=== PATIENT | female | born 1970 | race Caucasian/White ===

== ENCOUNTER → 2017-04-06 | Outpatient (CLI) | payer BC ==
[~2017-04-06] MED LIST: ANAPROX DS550 MG PO; BACTRIM DS 8001 TA1 PO; CEPHALEXIN500 M1 PO; CIPROFLOXACIN500 MG PO; DAYPRO600 M1 PO; HYDROCODONE BIT1 T11 PO; KEFLEX500 MG PO; MOTRIN800 MG PO; NAPROSYN500 MG PO; NKHM; TESSALON PERLE200 MG PO; ULTRAM50 MG PO; VICODIN ES 7501 TAB PO; ZITHROMAX Z PA250 MG PO; ZOFRAN ODT4 MG SL; ZOFRAN4 MG PO
== END | disposition home or self-care (01) ==
LOC: US 09:39
DX: K76.0 Fatty (change of) liver, not elsewhere classified (principal); R16.0 Hepatomegaly, not elsewhere classified; E66.01 Morbid (severe) obesity due to excess calories; G47.9 Sleep disorder, unspecified; E11.9 Type 2 diabetes mellitus without complications

== ENCOUNTER 2017-04-12 14:53 | Emergency (ER) | payer BC ==
[~2017-04-12] VITALS: Ht 144.7 cm; Wt 93.0 kg
[2017-04-12 14:58] VITALS: BP 146/98
[2017-04-12 15:38] LABS: BASO # 0.1 10*3/uL (0.0-0.1); BASO % 0.8 % (0.0-1.0); EOS # 0.1 10*3/uL (0.0-0.4); EOS % 1.4 % (1.0-4.0); HEMATOCRIT 38.2 % (37.0-47.0); HEMOGLOBIN 13.4 g/dl (12.0-16.0); LYMPH # 1.9 10*3/uL (1.3-4.4); LYMPH % 26.7 % (27.0-41.0); MEAN CORPUSCULAR HGB 30.9 pg (27.0-31.0); MEAN CORPUSCULAR HGB CONC 35.1 g/dl (33.0-37.0); MONO # 0.5 10*3/uL (0.1-1.0); MONO % 6.3 % (3.0-9.0); NEUT # 4.6 10*3/uL (2.3-7.9); NEUT % 64.4 % (47.0-73.0); PLATELET COUNT AUTOMATED 245 10*3/uL (130-400); RED BLOOD COUNT 4.34 10*6/uL (4.10-5.10); RED CELL DISTRI WIDTH 11.9 % (0-14.5); WHITE BLOOD COUNT 7.1 10*3/uL (4.8-10.8)
[2017-04-12 15:52] LABS: ALBUMIN 3.9 gm/dl (3.1-4.5); ALKALINE PHOSPHATASE 68 U/L (45-117); BUN 18 mg/dl (7-24); CHLORIDE 109 mmol/L (98-107); CREATININE 0.96 mg/dL (0.55-1.02); POTASSIUM 4.2 mmol/L (3.5-5.1); SGOT/AST 21 IU/L (3-35); SGPT/ALT 28 U/L (12-78); SODIUM 142 mmol/L (136-145); TOTAL PROTEIN 7.4 gm/dL (6.4-8.2)
[2017-04-12 15:56] LABS: BILIRUBIN NEGATIVE (NEGATIVE); BLOOD NEGATIVE (NEGATIVE); CLARITY CLEAR (CLEAR); COLOR YELLOW (YELLOW); GLUCOSE NEGATIVE (NEGATIVE); KETONE NEGATIVE (NEGATIVE); LEUKO ESTERASE NEGATIVE (NEGATIVE); NITRITE NEGATIVE (NEGATIVE); SPECIFIC GRAVITY 1.025 (1.005-1.030); UROBILINOGEN 0.2 E.U./dl (0.2-1.0)
[2017-04-12] MEDS ORDERED: ZOFRAN4 MG PO (16:00)
[2017-04-12 16:01] LABS: RBC 0-2 rbc/hpf (0-2)
[2017-04-12 16:02] LABS: BACTERIA 2+; MUCOUS TRACE; WBC 0-2 wbc/hpf (0-5)
== END 2017-04-12 16:13 | disposition home or self-care (01) ==
LOC: ED 14:53
PROVIDERS: Nurse Practitioner Family
DX: R19.7 Diarrhea, unspecified (principal); R03.0 Elevated blood-pressure reading, without diagnosis of hypertension; Z98.890 Other specified postprocedural states; Z98.51 Tubal ligation status; Z90.710 Acquired absence of both cervix and uterus

== ENCOUNTER → 2019-01-08 | Outpatient (CLI) | payer BC ==
[2019-01-08 14:25] LABS: BASO # 0.1 10*3/uL (0.0-0.1); BASO % 0.8 % (0.0-1.0); EOS # 0.1 10*3/uL (0.0-0.4); EOS % 1.5 % (1.0-4.0); HEMATOCRIT 42.7 % (37.0-47.0); HEMOGLOBIN 14.1 g/dl (12.0-16.0); LYMPH # 2.1 10*3/uL (1.3-4.4); LYMPH % 27.1 % (27.0-41.0); MEAN CELL VOLUME 93.4 fl (81.0-99.0); MEAN CORPUSCULAR HGB 30.9 pg (27.0-31.0); MEAN PLATELET VOLUME 10.7 fl (9.6-12.3); MONO # 0.4 10*3/uL (0.1-1.0); MONO % 5.8 % (3.0-9.0); NEUT # 4.9 10*3/uL (2.3-7.9); NEUT % 64.4 % (47.0-73.0); PLATELET COUNT AUTOMATED 276 10*3/uL (130-400); RED BLOOD COUNT 4.57 10*6/uL (4.10-5.10); RED CELL DISTRI WIDTH 11.7 % (0-14.5); WHITE BLOOD COUNT 7.6 10*3/uL (4.8-10.8)
[2019-01-08 14:34] LABS: ALBUMIN 4.1 gm/dl (3.1-4.5); ALKALINE PHOSPHATASE 77 U/L (45-117); BUN 21 mg/dl (7-24); CHLORIDE 104 mmol/L (98-107); CHOLESTEROL 204 mg/dL (<200); CREATININE 0.76 mg/dL (0.55-1.02); HDL CHOLESTEROL 71 mg/dl (40-60); LDL CHOLESTEROL 103 mg/dL (9-159); POTASSIUM 4.4 mmol/L (3.5-5.1); SGOT/AST 24 IU/L (3-35); SGPT/ALT 49 U/L (12-78); SODIUM 140 mmol/L (136-145); TOTAL PROTEIN 7.5 gm/dL (6.4-8.2); TRIGLYCERIDES 149 mg/dl (<150); VLDL CHOLESTEROL 30 mg/dL (6-40)
[2019-01-08 14:35] LABS: FREE T4 0.88 ng/dl (0.76-1.46)
[2019-01-08 14:39] LABS: THYROID STIM HORMONE (HS) 0.443 uIU/ml (0.358-4.75)
[2019-01-08 14:59] LABS: VITAMIN D, 25-HYDROXY 25.6 ng/mL (30-100)
== END | disposition home or self-care (01) ==
LOC: LAB 13:57
PROVIDERS: Internal Medicine
DX: Z13.1 Encounter for screening for diabetes mellitus (principal); Z13.21 Encounter for screening for nutritional disorder; Z13.220 Encounter for screening for lipoid disorders

== ENCOUNTER → 2019-01-22 | Outpatient (CLI) | payer BC | END | disposition home or self-care (01) | LOC: RAD 10:19 | DX: Z13.820 Encounter for screening for osteoporosis (principal); M06.9 Rheumatoid arthritis, unspecified; Z78.0 Asymptomatic menopausal state; Z90.710 Acquired absence of both cervix and uterus; Z87.891 Personal history of nicotine dependence ==

== ENCOUNTER → 2021-08-08 | Outpatient (CLI) | payer BC | END | disposition home or self-care (01) | LOC: MAMMO 15:34 | PROVIDERS: ATTEND Internal Medicine | DX: Z12.31 Encounter for screening mammogram for malignant neoplasm of breast (principal); N64.59 Other signs and symptoms in breast ==

== ENCOUNTER → 2021-08-11 | Outpatient (CLI) | payer BC | END | disposition home or self-care (01) | LOC: RAD 00:02 | PROVIDERS: ATTEND Internal Medicine | DX: M81.0 Age-related osteoporosis without current pathological fracture (principal) ==

== ENCOUNTER → 2021-08-12 | Outpatient (CLI) | payer BC ==
[2021-08-12 09:34] LABS: BASO # 0.1 10*3/uL (0.0-0.1); BASO % 0.7 % (0.0-1.0); EOS # 0.1 10*3/uL (0.0-0.4); EOS % 1.1 % (1.0-4.0); HEMATOCRIT 41.9 % (37.0-47.0); LYMPH # 2.2 10*3/uL (1.3-4.4); LYMPH % 30.5 % (27.0-41.0); MEAN CELL VOLUME 90.3 fl (81.0-99.0); MEAN CORPUSCULAR HGB 29.7 pg (27.0-31.0); MEAN CORPUSCULAR HGB CONC 32.9 g/dl (33.0-37.0); MEAN PLATELET VOLUME 10.1 fl (9.6-12.3); MONO # 0.4 10*3/uL (0.1-1.0); MONO % 6.2 % (3.0-9.0); NEUT # 4.3 10*3/uL (2.3-7.9); NEUT % 60.8 % (47.0-73.0); PLATELET COUNT AUTOMATED 330 10*3/uL (130-400); RED BLOOD COUNT 4.64 10*6/uL (4.10-5.10); RED CELL DISTRI WIDTH 11.9 % (0-14.5); WHITE BLOOD COUNT 7.1 10*3/uL (4.8-10.8)
[2021-08-12 09:56] LABS: ALKALINE PHOSPHATASE 89 U/L (45-117); BUN 13 mg/dl (7-24); CHLORIDE 109 mmol/L (98-107); CHOLESTEROL 258 mg/dL (<200); CREATININE 0.92 mg/dL (0.55-1.02); FREE T4 0.95 ng/dl (0.76-1.46); LDL CHOLESTEROL 157 mg/dL (9-159); POTASSIUM 4.6 mmol/L (3.5-5.1); SGOT/AST 16 IU/L (3-35); SGPT/ALT 20 U/L (12-78); SODIUM 141 mmol/L (136-145); T3 UPTAKE 35 % (31-39); TOTAL PROTEIN 7.7 gm/dL (6.4-8.2); TRIGLYCERIDES 131 mg/dl (<150)
[2021-08-12 10:01] LABS: THYROID STIM HORMONE (HS) 0.623 uIU/ml (0.358-4.75)
== END | disposition home or self-care (01) ==
LOC: LAB 09:21
PROVIDERS: ATTEND Internal Medicine
DX: Z13.1 Encounter for screening for diabetes mellitus (principal); Z13.6 Encounter for screening for cardiovascular disorders; Z23 Encounter for immunization; Z13.0 Encounter for screening for diseases of the blood and blood-forming organs and certain disorders involving the immune mechanism; Z13.220 Encounter for screening for lipoid disorders; Z13.228 Encounter for screening for other metabolic disorders; Z13.89 Encounter for screening for other disorder; E55.9 Vitamin D deficiency, unspecified

== ENCOUNTER 2022-02-02 10:07 | Emergency (ER) | payer BC ==
[~2022-02-02] VITALS: Ht 144.7 cm; Wt 83.9 kg
[2022-02-02 10:31] VITALS: BP 130/88
[2022-02-02 11:00] LABS: BASO % 0.6 % (0.0-1.0); EOS # 0.1 10*3/uL (0.0-0.4); EOS % 0.9 % (1.0-4.0); HEMATOCRIT 42.3 % (37.0-47.0); LYMPH # 1.8 10*3/uL (1.3-4.4); LYMPH % 27.1 % (27.0-41.0); MEAN CORPUSCULAR HGB 30.1 pg (27.0-31.0); MEAN CORPUSCULAR HGB CONC 33.1 g/dl (33.0-37.0); MEAN PLATELET VOLUME 10.1 fl (9.6-12.3); MONO # 0.5 10*3/uL (0.1-1.0); MONO % 6.8 % (3.0-9.0); NEUT # 4.2 10*3/uL (2.3-7.9); NEUT % 62.8 % (47.0-73.0); PLATELET COUNT AUTOMATED 485 10*3/uL (130-400); RED BLOOD COUNT 4.65 10*6/uL (4.10-5.10); RED CELL DISTRI WIDTH 12.1 % (0-14.5); WHITE BLOOD COUNT 6.6 10*3/uL (4.8-10.8)
[2022-02-02 11:17] LABS: ACT PARTIAL THROMBO TIME 26.8 SECONDS (20.0-32.1); INTERNATIONAL NORM RATIO 0.9 (2.0-3.5)
[2022-02-02 11:52] LABS: BUN 22 mg/dl (7-24); CREATININE 0.89 mg/dL (0.55-1.02); SODIUM 142 mmol/L (136-145)
[2022-02-02 11:54] LABS: ALKALINE PHOSPHATASE 72 U/L (45-117); CHLORIDE 108 mmol/L (98-107); POTASSIUM 4.4 mmol/L (3.5-5.1); SGOT/AST 13 IU/L (3-35); SGPT/ALT 20 U/L (12-78); TOTAL PROTEIN 7.7 gm/dL (6.4-8.2)
[2022-02-02 11:55] LABS: LIPASE 200 U/L (73-393)
== END 2022-02-02 13:39 | disposition home or self-care (01) ==
LOC: ED 10:07
PROVIDERS: Emergency Medicine
DX: U07.1 COVID-19 (principal); B34.9 Viral infection, unspecified; Z98.890 Other specified postprocedural states; Z90.710 Acquired absence of both cervix and uterus; Z98.51 Tubal ligation status; Z20.822 Contact with and (suspected) exposure to COVID-19